=== PATIENT | female | born 1960 | race Two or more races ===

== ENCOUNTER 2024-12-23 12:53 | Inpatient (IN) | payer OTHER ==
[~2024-12-23] VITALS: Ht 154.9 cm; Wt 176.9 kg
[2024-12-23 13:25] VITALS: BP 138/85; O2SAT 93
[2024-12-23] MEDS ORDERED: ALBUTEROL0.63 MG/3 IH (13:32)
--- NOTE | 2024-12-23 13:46 | NUR ---
SE PRESENTA PACIENTE ALERTA Y CONCIENTE X 3. LA MISMA REFIERE TENER DIFICULTAD RESPIRATORIA DESDE HACE AISLINN SEMANA Y DOLOR EN LAS ARTICULACIONES. SE PROCEDE A GARY S/V A LA PACIENTE Y SE COLOCA EN DONA K9 CON BARANDAS ELEVADAS Y NIVEL MAS BAJO DE DONA.
[2024-12-23] MEDS ORDERED: IPRATROPIUM BROMIDE 0.5 MG/2.5 ML AMPUL.NEB IH SCH ×2 (14:00→22:53)
[2024-12-23] MEDS ORDERED: METHYLPREDNISOLONE SOD SUCC 125 MG VIAL IV ONE (14:00)
[2024-12-23] MEDS ORDERED: LEVALBUTEROL HCL 0.63 MG/3 ML SOLUTION IH SCH (14:00)
[2024-12-23] MEDS ORDERED: METHYLPREDNISOLONE SOD SUCC 125 MG VIAL ONE (14:21)
--- NOTE | 2024-12-23 14:24 | NUR ---
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 RN [place], COLECTA MUESTRA DE LAB Y ADMINISTRA MEDICAMENTO LUKE ORDEN MEDICA BAJO MEDIDAS ASEPTICAS. SE NOTICA XRAY. SE NOTIFICAN ABG Y TERAPIAS A MR. PELAEZ.
[2024-12-23] MEDS ORDERED: IPRATROPIUM BROMIDE 0.5 MG/2.5 ML AMPUL.NEB IH ONE (14:25)
[2024-12-23] MEDS ORDERED: LEVALBUTEROL HCL 0.63 MG/3 ML SOLUTION IH ONE (14:25)
[2024-12-23 14:39] LABS: ABG PH 7.419 (7.35-7.45); ABG pCO2 41.3 mmHg (35-45); BASE EXCESS 1.5 mmol/l; BICARBONATE 26.2 mmol/l (23-25); SaO2 89.6 %; Tco2 27.4 mmol/l
[2024-12-23 14:40] LABS: ABG PO2 56.3 mmHg (80-100)
[2024-12-23 14:41] LABS: allen test SATISFACTORY; mode ROOM AIR; o2 21 %; puncture site RADIAL RIGHT
[2024-12-23 14:43] LABS: BASO % 0.6 % (0.1-1.2); EOS # 0.01 (0.04-0.54); EOS % 0.3 % (0.7-7.0); HEMATOCRIT 42.1 % (34.1-44.9); HEMOGLOBIN 13.7 g/dL (11.2-15.7); LYMPH # 1.34 (1.18-3.74); LYMPH % 40.4 % (19.3-53.1); MEAN CORPUSCULAR HEMOGLOBIN 27.8 pg (25.6-32.2); NEUT # 1.63 (1.56-6.13); NEUT % 49.1 % (34.0-71.1); PLATELET COUNT 167 K/uL (163-369); RED BLOOD COUNT 4.93 M/uL (3.93-5.22); RED CELL DISTRIBUTION WIDTH 13.2 % (11.6-14.4)
[2024-12-23 15:35] LABS: COVID-19 AG NEGATIVE (NEGATIVE)
[2024-12-23 15:36] LABS: INFLUENZA A AG NEGATIVE (NEGATIVE)
[2024-12-23 18:40] LABS: PARTIAL THROMBOPLASTIN TIME 24.5 SECONDS (22.0-34.0); PROTHROMBIN TIME 10.9 SECONDS (9.0-11.5)
[2024-12-23 18:47] LABS: ALBUMIN 3.2 gm/dL (3.4-5.0); BILIRUBIN TOTAL 0.58 mg/dL (0.3-1.2); CALCIUM 8.6 mg/dL (8.5-10.1); CREATININE SERUM 1.07 mg/dL (0.55-1.02); GFR 52.13; GLOBULINA 4.6 G/DL (2.4-3.5); POTASSIUM 4.22 mEq/L (3.5-5.1); TOTAL PROTEIN 7.8 gm/dL (6.4-8.2)
[2024-12-23] MEDS ORDERED: 0.9 % SODIUM CHLORIDE 1,000 ML IV SCH (22:45)
[2024-12-23] MEDS ORDERED: LEVALBUTEROL HCL 1.25 MG/3 ML SOLUTION IH SCH (22:53)
[2024-12-23] MEDS ORDERED: levoFLOXacin IN DEXTROSE 5 % 150 ML IV SCH (22:57)
[2024-12-23] MEDS ORDERED: METHYLPREDNISOLONE SOD SUCC 40 MG VIAL IV SCH (22:57)
[2024-12-23] MEDS ORDERED: ACETAMINOPHEN 500 MG GEL..CAP PO PRN (23:00)
[2024-12-23] MEDS ORDERED: ENALAPRILAT DIHYDRATE 1.25 MG/ML VIAL IV PRN (23:45)
[2024-12-23] MEDS ORDERED: DEXTROSE 50 % IN WATER 0.5 G/ML DISP.SYRIN IV PRN (23:45)
[2024-12-23] MEDS ORDERED: INSULIN LISPRO 1,000 UNIT/10 ML UNITS SUBCUTANEO PRN (23:45)
[2024-12-24] MEDS ORDERED: GUAIFEN/DEXTROMETHORPHAN/PE 10 ML BLIST.PACK PO SCH (01:00)
[2024-12-24] MEDS ORDERED: ENOXAPARIN SODIUM 40 MG/0.4 ML SYRINGE SUBCUTANEO SCH (09:00)
[2024-12-24] MEDS ORDERED: FAMOTIDINE/PF 20 MG in 0.9 % SODIUM CHLORIDE 8 ML IV PUSH SCH (09:00)
[2024-12-24] MEDS ORDERED: MONTELUKAST SODIUM 10 MG TABLET PO SCH (17:00)
== END 2024-12-24 01:00 | disposition left against medical advice (07) | DRG 203 ==
LOC: ER 13:11 → SEC-K 23:00 → MEDJ 23:00 → SEC-K 12-24 00:33
PROVIDERS: Emergency Medicine; General Practice; ADMIT Internal Medicine; ATTEND Internal Medicine
PROC: 4A033R1 Measurement of Arterial Saturation, Peripheral, Percutaneous Approach (ICD-10-PCS; principal; 2024-12-23)
PROC: 3E0F7GC Introduction of Other Therapeutic Substance into Respiratory Tract, Via Natural or Artificial Opening (ICD-10-PCS; 2024-12-23)
PROC: BB24ZZZ Computerized Tomography (CT Scan) of Bilateral Lungs (ICD-10-PCS; 2024-12-23)
DX: J45.41 Moderate persistent asthma with (acute) exacerbation (principal); R09.02 Hypoxemia; Z53.29 Procedure and treatment not carried out because of patient's decision for other reasons